=== PATIENT | female | born 1980 | race Caucasian/White ===

== ENCOUNTER 2018-05-04 16:39 | Outpatient (CLI) | payer MEDICAID ==
[2018-05-04 17:56] LABS: ADD UMIC NO; UR ASCORBIC ACID NEGATIVE (NEGATIVE); UR BILIRUBIN (Dip) NEGATIVE (NEGATIVE); UR BLOOD (Dip) NEGATIVE (NEGATIVE); UR CLARITY CLEAR (CLEAR); UR COLOR YELLOW (YELLOW); UR GLUCOSE (Dip) NEGATIVE (NEGATIVE); UR KETONES (Dip) NEGATIVE (NEGATIVE); UR LEUKOCYTE ESTERASE (Dip) NEGATIVE Leu/ul (NEGATIVE); UR NITRITE (Dip) NEGATIVE (NEGATIVE); UR SPECIFIC GRAVITY (Dip) 1.013 (1.003-1.030); UR TOTAL PROTEIN (Dip) NEGATIVE (NEGATIVE); UR UROBILINOGEN (Dip) NEGATIVE (NEGATIVE)
[2018-05-04] MEDS: TERBUTALINE 1 MG/ML INJ SC (20:44)
== END 2018-05-04 22:17 | disposition home or self-care (01) ==
LOC: OBT 16:39 → L-D 16:40 → OBT 22:17
DX: O20.8 Other hemorrhage in early pregnancy (principal); Z3A.33 33 weeks gestation of pregnancy
CPT/HCPCS: 76815; 76817; 76818; 81003; 87086; 96372

== ENCOUNTER 2018-06-13 17:55 | Inpatient (IN) | payer MEDICAID ==
[2018-06-13] MEDS: LIDOCAINE 0.5% (SDV) 50 ML INJ INFIL (07:27)
[2018-06-13] MEDS ORDERED: LIDOCAINE 1% (MPF) 30 ML INJ INJ (19:00)
[2018-06-13] MEDS ORDERED: CARBOPROST 250 MCG INJ IM (19:00)
[2018-06-13] MEDS ORDERED: MISOPROSTOL 200 MCG TAB PR (19:00)
[2018-06-13] MEDS ORDERED: OXYTOCIN 30 UNITS/LR 500 ML IV (19:00)
[2018-06-13] MEDS ORDERED: IBUPROFEN 600 MG TAB PO (19:00)
[2018-06-13] MEDS: LACTATED RINGER'S 1,000 ML IV* (19:13)
[2018-06-13 19:40] LABS: ADD MAN DIFF? NO
[2018-06-13 19:43] LABS: BASOPHILS % 0.2 % (0.0-2.0); EOSINOPHILS % 0.4 % (0.0-7.0); HEMATOCRIT 37.6 % (37.0-47.0); LYMPHOCYTES # 1.9 10^3/ul (0.8-2.9); MEAN CORPUSCULAR HEMOGLOBIN 32.2 pg (29.0-33.0); MEAN CORPUSCULAR HGB CONC 34.6 g/dl (32.0-37.0); MEAN CORPUSCULAR VOLUME 93.1 fl (82.0-101.0); MEAN PLATELET VOLUME 11.2 fl (7.4-10.4); MONOCYTES % 10.3 % (0.0-11.0); NEUTROPHIL # 6.3 10^3/ul (1.6-7.5); NEUTROPHILS % 68.3 % (39.0-77.0); PLATELET COUNT 202 10^3/UL (140-415); RED BLOOD COUNT 4.04 10^6/ul (4.20-5.40); RED CELL DISTRIBUTION WIDTH 13.3 % (11.5-14.5)
[2018-06-13 19:43] LABS: WHITE BLOOD COUNT 9.2 10^3/ul (4.8-10.8)
[2018-06-13 20:03] LABS: INR 0.78; PARTIAL THROMBOPLASTIN TIME 25.2 Sec (23.0-35.0); PROTIME 10.9 Sec (11.9-14.9); PT RATIO 0.9
[2018-06-13 20:26] LABS: GLUCOSE 98 mg/dl (70-220)
[2018-06-13] MEDS: BUTORPHANOL 2 MG INJ IV (21:03)
[2018-06-13 22:30] LABS: RAPID PLASMA REAGIN NONREACTIVE (NR)
[2018-06-14] MEDS: LACTATED RINGER'S 1,000 ML IV* ×3 (00:01→10:22)
[2018-06-14] MEDS: OXYTOCIN 30 UNITS/LR 500 ML IV ×2 (00:33→01:08)
[2018-06-14] MEDS: METHYLERGONOVINE 0.2 MG INJ IM (00:49)
[2018-06-14] MEDS ORDERED: CARBOPROST 250 MCG INJ IM (02:30)
[2018-06-14] MEDS ORDERED: METHYLERGONOVINE 0.2 MG INJ IM (02:30)
[2018-06-14] MEDS ORDERED: OXYTOCIN 30 UNITS/LR 500 ML IV (02:30)
[2018-06-14] MEDS ORDERED: DIBUCAINE 1% 30 GM OINT TOP (02:30)
[2018-06-14] MEDS ORDERED: ACETAMINOPHEN 325 MG TAB PO (02:30)
[2018-06-14] MEDS ORDERED: MISOPROSTOL 200 MCG TAB PR (02:30)
[2018-06-14] MEDS: BENZOCAINE 20% 56 ML SPRAY TOP (05:42)
[2018-06-14] MEDS: IBUPROFEN 600 MG TAB PO ×3 (05:42→17:41)
[2018-06-14] MEDS: WITCH HAZEL/GLYCERIN PAD PR (05:43)
[2018-06-14] MEDS: SENNA/DOCUSATE NA (8.6MG/50MG) TAB PO ×2 (09:33→20:45)
[2018-06-14] MEDS: HYDROCODONE/APAP (5/325) TAB PO ×2 (14:08→22:12)
[2018-06-15] MEDS: IBUPROFEN 600 MG TAB PO ×3 (00:03→11:49)
[2018-06-15 07:52] LABS: ADD MAN DIFF? NO
[2018-06-15 08:07] LABS: BASOPHILS % 0.4 % (0.0-2.0); EOSINOPHILS # 0.1 10^3/ul (0.0-0.5); HEMATOCRIT 33.5 % (37.0-47.0); HEMOGLOBIN 11.5 g/dl (12.0-16.0); LYMPHOCYTES # 2.4 10^3/ul (0.8-2.9); LYMPHOCYTES % 21.4 % (15.0-51.0); MEAN CORPUSCULAR HEMOGLOBIN 32.5 pg (29.0-33.0); MEAN CORPUSCULAR HGB CONC 34.3 g/dl (32.0-37.0); MEAN CORPUSCULAR VOLUME 94.6 fl (82.0-101.0); MEAN PLATELET VOLUME 10.6 fl (7.4-10.4); MONOCYTE # 0.9 10^3/ul (0.3-0.9); MONOCYTES % 7.7 % (0.0-11.0); NEUTROPHIL # 7.7 10^3/ul (1.6-7.5); NEUTROPHILS % 68.9 % (39.0-77.0); PLATELET COUNT 188 10^3/UL (140-415); RED BLOOD COUNT 3.54 10^6/ul (4.20-5.40); RED CELL DISTRIBUTION WIDTH 13.6 % (11.5-14.5)
[2018-06-15 08:07] LABS: WHITE BLOOD COUNT 11.1 10^3/ul (4.8-10.8)
[2018-06-15] MEDS: SENNA/DOCUSATE NA (8.6MG/50MG) TAB PO ×2 (09:25→21:00)
[2018-06-15] MEDS: IBUPROFEN 200 MG TAB PO ×2 (18:34→23:55)
[2018-06-16] MEDS: IBUPROFEN 200 MG TAB PO ×2 (06:05→12:04)
[2018-06-16] MEDS: SENNA/DOCUSATE NA (8.6MG/50MG) TAB PO (08:59)
[2018-06-16] MEDS: DIPHTH/TET/ACEL PERTUSS (ADULT) 0.5 ML VIAL IM* (09:21)
== END 2018-06-16 15:20 | disposition home or self-care (01) | DRG 807 ==
LOC: OBT 17:55 → PP1 06-14 02:41 → L-D 17:56 → OBT 19:25 → L-D 19:25
PROVIDERS: Obstetrics & Gynecology
PROC: 10E0XZZ Delivery of Products of Conception, External Approach (ICD-10-PCS; principal; 2018-06-14)
PROC: 0KQM0ZZ Repair Perineum Muscle, Open Approach (ICD-10-PCS; 2018-06-14)
DX: O70.1 Second degree perineal laceration during delivery (principal); Z37.0 Single live birth; Z3A.39 39 weeks gestation of pregnancy
CPT/HCPCS: 82947; 85025; 85610; 85730; 86592; 86850; 86900; 86901; 90715